=== PATIENT | male | born 1970 | race Caucasian/White ===

== ENCOUNTER 2017-02-07 13:38 | Emergency (ER) | payer OTHER ==
[2017-02-07 13:39] VITALS: BMI 25.3
[2017-02-07] MEDS ORDERED: Tmp-Smz 800 mg-160 mg DS Tab PO STA (14:22)
[2017-02-07] MEDS ORDERED: Oxycodone/Acetaminophen 5/325 mg Tab PO STA (14:22)
[2017-02-07] MEDS ORDERED: Lidocaine 1% Inj (20ml) INFIL STA (14:22)
[2017-02-07] MEDS ORDERED: Lidocaine 1% Inj (20ml) ONE (14:35)
[2017-02-07] MEDS ORDERED: Oxycodone/Acetaminophen 5/325 mg Tab ONE (14:35)
[2017-02-07] MEDS ORDERED: Tmp-Smz 800 mg-160 mg DS Tab ONE (14:35)
--- NOTE | 2017-02-07 14:59 | C.PDOC ---
History Of Present Illness 46 y/o male presents to the ED with complaints of painful mass to right buttock growing in size over the past 5 days. Pt stats has had the same in the past. History of diabetes, noncompliant with medications for past several months. Denies fever, chills, headache, vomiting or any other complaints. Time Seen by Provider: 02/07/17 14:11 Chief Complaint (Nursing): Abnormal Skin Integrity History Per: Patient History/Exam Limitations: no limitations Onset/Duration Of Symptoms: Days Current Symptoms Are (Timing): Still Present Quality Of Symptoms: Painful, Swollen Severity: Moderate Recent travel outside of the [place]: No Past Medical History Reviewed: Historical Data, Nursing Documentation, Vital Signs Vital Signs: Last Vital Signs Temp 99.8 F H 02/07/17 15:18 Pulse 75 02/07/17 15:18 Resp 18 02/07/17 15:18 BP 117/76 02/07/17 15:18 Pulse Ox 97 02/07/17 15:18 Family History: States: Unknown Family Hx - Social History Hx Alcohol Use: Yes Hx Substance Use: No - Immunization History Hx Tetanus Toxoid Vaccination: No Hx Influenza Vaccination: No Hx Pneumococcal Vaccination: No Review Of Systems Constitutional: Negative for: Fever, Chills Gastrointestinal: Negative for: Vomiting Skin: Positive for: Other (painful mass to right buttock) Neurological: Negative for: Headache Physical Exam - Physical Exam Appears: Non-toxic, No Acute Distress Skin: Warm, Dry, Other (2x2 cm tender, fluctuant, erythematous mass to right medial glute near cleft with surrounding erythema and induration) Head: Atraumatic, Normacephalic Eye(s): bilateral: Normal Inspection Neck: Normal ROM Chest: Symmetrical Cardiovascular: Rhythm Regular, No Murmur Respiratory: Normal Breath Sounds, No Rales, No Rhonchi, No Wheezing Extremity: Bilateral: Atraumatic, Normal ROM Neurological/Psych: Oriented x3, Normal Speech ED Course And Treatment O2 Sat by Pulse Oximetry: 98 (room air) Pulse Ox Interpretation: Normal - Incision & Drainage Of Abscess Anesthesia: Lidocaine 1% Prep Used: Betadine Procedure: Incised W/Scalpel Blade#: (11), Drained Pus, Irrigated Cavity W/ Saline, Packed W/Gauze (1/4 in iodoform) Medical Decision Making Medical Decision Making: Patient with gluteal abscess. Treated with Percocet and Bactrim. Performed I&D without complication. Patient tolerated well. Discharged home with follow up instructions. Disposition Counseled Patient/Family Regarding: Diagnosis, Need For Followup, Rx Given - Disposition Disposition: HOME/ ROUTINE Disposition Time: 14:57 Condition: STABLE Additional Instructions: Your abscess wound was drained in our Emergency Room. Packing was placed. It is important that you keep area covered and change dressing daily. Please follow up with your primary doctor, clinic, urgent care or return to ER for packing removal in 2 days. Take antibiotic as prescribed and pain medicine as needed Prescriptions: Sulfamethoxazole/Trimethoprim [Bactrim DS 800 mg-160 mg] 1 tab PO BID #14 tab traMADol [Ultram] 50 mg PO Q8 #14 tab Instructions: Abscess Incision and Drainage (ED) - POA Present On Arrival: None - Clinical Impression Clinical Impression: Abscess, gluteal, right - PA / PAYROLL ACCOUNTING CLERK / Resident Statement MD/DO has reviewed & agrees with the documentation as recorded. - Scribe Statement The provider has reviewed the documentation as recorded by the Smiley Bassett All medical record entries made by the Smiley were at my direction and personally dictated by me. I have reviewed the chart and agree that the record accurately reflects my personal performance of the history, physical exam, medical decision making, and the department course for this patient. I have also personally directed, reviewed, and agree with the discharge instructions and disposition.
[2017-02-07 15:18] VITALS: BP 117/76; PULSE 75; RESP 18; TEMP 99.8
[2017-02-07 17:14] VITALS: O2SAT 98
== END 2017-02-07 15:20 | disposition home or self-care (01) ==
LOC: C.ER 13:38
DX: L02.31 Cutaneous abscess of buttock (principal)

== ENCOUNTER 2018-02-17 19:43 | Emergency (ER) | payer OTHER ==
[2018-02-17 19:43] VITALS: BMI 25.3
[2018-02-17 19:53] VITALS: BP 122/79; PULSE 73; TEMP 98.5; O2SAT 98
--- NOTE | 2018-02-17 20:12 | C.PDOC ---
History Of Present Illness 47 y/o male comes in for evaluation of chronic left knee pain, worsening over the past 4 days. Patient has PMHx of arthritis in the left knee. Pain is described as localized, but radiates down the lower leg with ambulation. Patient cannot recall any direct injury or trauma. Otherwise patient denies any weakness or sensorivascular deficits. States he took Naproxen at home with minimal improvement. Time Seen by Provider: 02/17/18 19:49 Chief Complaint (Nursing): Lower Extremity Problem/Injury History Per: Patient History/Exam Limitations: no limitations Onset/Duration Of Symptoms: Days (x4) Current Symptoms Are (Timing): Still Present Past Medical History Reviewed: Historical Data, Nursing Documentation, Vital Signs Vital Signs: Last Vital Signs Temp 98.5 F 02/17/18 19:50 Pulse 73 02/17/18 19:50 Resp 14 02/17/18 19:50 BP 122/79 02/17/18 19:50 Pulse Ox 98 02/17/18 20:12 - Medical History PMH: Diabetes Surgical History: No Surg Hx Family History: States: Unknown Family Hx - Social History Hx Alcohol Use: Yes Hx Substance Use: No - Immunization History Hx Tetanus Toxoid Vaccination: No Hx Influenza Vaccination: No Hx Pneumococcal Vaccination: No Review Of Systems Except As Marked, All Systems Reviewed And Found Negative. Musculoskeletal: Positive for: Leg Pain (left knee) Neurological: Negative for: Weakness, Numbness Physical Exam - Physical Exam Appears: Well, Non-toxic, No Acute Distress Skin: Normal Color, Warm, No Rash, No Ecchymosis Extremity: Normal ROM (FAROM of Left knee with mild discomfort to Left knee flexion due to pain. No neurovascular deficits.), Tenderness (to the anterior aspect of L knee, with mild edema. No skin changes, no erythema.), No Calf Tenderness (Left), Capillary Refill (less than 2sec), No Deformity Pulses: Left Dorsalis Pedis: Normal, Right Dorsalis Pedis: Normal Neurological/Psych: Oriented x3, Normal Speech, Normal Motor, Normal Sensation, Normal Reflexes ED Course And Treatment O2 Sat by Pulse Oximetry: 98 (RA) Pulse Ox Interpretation: Normal Progress Note: X-rays of the left knee ordered and reviewed. Patient treated with PO Tramadol and Prednisone. On re-eval, pt is afebrile, hemodynamicaly stable. Non-toxic, ambulatory in Ed with stable gait. LLE: mild superior knee edema, anterior aspect tenderness. No erythema, no defomrity. FAROM, no neurovascular deficits. Imaging review (+) DJD, small effusion. Pt has clinical finidngs c/w Left knee arthralgia r/o OA.Pt advised. ref. to f/u with PMD, Ortho in 1-2 days for re-eval. return if any new changes. Disposition Counseled Patient/Family Regarding: Studies Performed, Diagnosis, Need For Followup, Rx Given - Disposition Referrals: Tapan Gross DO [Staff Provider] - Disposition: HOME/ ROUTINE Disposition Time: 20:30 Condition: STABLE Additional Instructions: Davie wrap to knee for 2-3 weeks Avoid prolong walking/ knee bending for 2 weeks Take medication as prescribed Follow up with PMD, Orthopedist in 2-3 days for re-evaluation. return to ED if any worsening or new changes. Prescriptions: Prednisone [Deltasone] 40 mg PO DAILY #6 tablet traMADol [Ultram] 50 mg PO TID #7 tab Instructions: Osteoarthritis (DC), Knee Pain (DC) Forms: [employer] (Eritrean) - Clinical Impression Clinical Impression: Arthralgia of knee - PA / CNC TECHNICIAN / Resident Statement MD/ has reviewed & agrees with the documentation as recorded. - Scribe Statement The provider has reviewed the documentation as recorded by the Scribe (Flora Anne) All medical record entries made by the Scribe were at my direction and personally dictated by me. I have reviewed the chart and agree that the record accurately reflects my personal performance of the history, physical exam, medical decision making, and the department course for this patient. I have also personally directed, reviewed, and agree with the discharge instructions and disposition.
[2018-02-17 21:08] VITALS: RESP 20
--- NOTE | 2018-02-18 10:15 | RAD ---
Left knee three views History: Knee pain. Comparison: None available. Findings: Moderate medial compartment joint space narrowing with subchondral sclerosis and osteophytosis. Spurring of the tibial spines. Mild to moderate narrowing of the patellofemoral joint space. Small suprapatellar joint effusion. Question minimal cortical irregularity at the medial cortex of the proximal tibia which may be related to osteophytosis. Question small loose body at the posterior aspect of the femorotibial joint space. Impression: Moderate medial compartment joint space narrowing with subchondral sclerosis and osteophytosis. Spurring of the tibial spines. Mild to moderate narrowing of the patellofemoral joint space. Small suprapatellar joint effusion. Question minimal cortical irregularity at the medial cortex of the proximal tibia which may be related to osteophytosis. Question small loose body at the posterior aspect of the femorotibial joint space. If pain persists, consider MRI.
== END 2018-02-17 21:07 | disposition home or self-care (01) ==
LOC: C.ER 19:43
DX: M25.562 Pain in left knee (principal)

== ENCOUNTER 2018-09-23 18:11 | Emergency (ER) | payer OTHER ==
[2018-09-23 18:12] VITALS: BMI 25.3
--- NOTE | 2018-09-23 19:49 | C.PDOC ---
History Of Present Illness 48 year old male presents to the emergency department with complaints of lacy rash to his bilateral lower legs for two days. He denies pruritus and pain. Patient states that he occasionally takes Naprosyn with no relief of symptoms. Patient also reports using lotion on his legs daily. Patient reports being seen for the same symptoms one year ago. Patient also reports occasional ankle swelling which he has had for the last year. Time Seen by Provider: 09/23/18 18:29 Chief Complaint (Nursing): Lower Extremity Problem/Injury History Per: Patient History/Exam Limitations: no limitations Onset/Duration Of Symptoms: Days (2) Current Symptoms Are (Timing): Still Present Past Medical History Reviewed: Historical Data, Nursing Documentation, Vital Signs - Medical History PMH: Arthritis, Diabetes Surgical History: No Surg Hx Family History: States: Unknown Family Hx - Social History Hx Alcohol Use: Yes Hx Substance Use: No - Immunization History Hx Tetanus Toxoid Vaccination: No Hx Influenza Vaccination: No Hx Pneumococcal Vaccination: No Review Of Systems Except As Marked, All Systems Reviewed And Found Negative. Constitutional: Negative for: Fever, Chills Cardiovascular: Negative for: Chest Pain Respiratory: Negative for: Shortness of Breath Gastrointestinal: Negative for: Nausea, Vomiting, Abdominal Pain, Diarrhea Musculoskeletal: Positive for: Foot Pain (occasional ankle swelling) Skin: Positive for: Rash Physical Exam - Physical Exam Appears: Non-toxic, No Acute Distress Skin: Warm, Dry, Rash (lacy rash to bilateral lower extremities from mid-thigh down to ankles. ), No Other (erythema) Head: Atraumatic, Normacephalic Eye(s): bilateral: Normal Inspection, PERRL, EOMI Nose: Normal Oral Mucosa: Moist Tongue: Normal Appearing, No Swelling Lips: Normal Appearing, No Swelling Throat: Normal, No Erythema Neck: Normal, Supple Chest: Symmetrical, No Tenderness Cardiovascular: Rhythm Regular, No Murmur Respiratory: Normal Breath Sounds, No Rales, No Rhonchi, No Wheezing Extremity: Normal ROM, No Tenderness, No Pedal Edema, No Swelling Pulses: Left Dorsalis Pedis: Normal, Right Dorsalis Pedis: Normal Neurological/Psych: Oriented x3, Normal Speech, Normal Cognition Medical Decision Making Medical Decision Making: lacy rash b/l lower extremities using same skin lotion daily for long time no edema low susp of DVT/CHF otherwise eval normal Plan: Benadryl 50mg PO Pepcid 20mg PO Disposition Doctor Will See Patient In The: Office Counseled Patient/Family Regarding: Studies Performed, Diagnosis - Disposition Referrals: Tapan Gross DO [Staff Provider] - Disposition: HOME/ ROUTINE Disposition Time: 19:49 Condition: GOOD Additional Instructions: discontinue the leg lotion which may be provoking this skin reaction Benadryl 25-50 mg every 6 hours as needed Pepcid 20 mg @ night to lower itching of skin follow-up with your PMD as needed. Instructions: Skin Rash Forms: [employer] (Icelandic) - Clinical Impression Clinical Impression: Skin rash - Scribe Statement The provider has reviewed the documentation as recorded by the Scribe (Adolfo Navarro) Provider Attestation: All medical record entries made by the Scribe were at my direction and personally dictated by me. I have reviewed the chart and agree that the record accurately reflects my personal performance of the history, physical exam, medical decision making, and the department course for this patient. I have also personally directed, reviewed, and agree with the discharge instructions and disposition.
[2018-09-23 20:06] VITALS: BP 120/80; PULSE 75; RESP 16; TEMP 98.2; O2SAT 99
== END 2018-09-23 20:04 | disposition home or self-care (01) ==
LOC: C.ER 18:11
DX: R21 Rash and other nonspecific skin eruption (principal); E11.9 Type 2 diabetes mellitus without complications